=== PATIENT | female | born 1995 | race Hispanic/Latino ===

== ENCOUNTER 2017-03-16 22:21 | Emergency (ER) | payer SELFPAY ==
[~2017-03-16] VITALS: Ht 160 cm; Wt 57.6 kg
[2017-03-17 00:28] LABS: STREPTOCOCCUS GRP A ANTIGEN NEGATIVE (NEGATIVE)
[2017-03-17 00:39] LABS: INFLUENZAE A&B ANTIGEN (RAPID) NEGATIVE (NEGATIVE)
--- NOTE | 2017-03-17 00:57 | Diagnostic Imaging Report ---
CHEST 2 VIEWS, Technique: CHEST 2 VIEWS Comparison: None Clinical history: Cough DISCUSSION: Normal appearance of the heart, mediastinum, lungs and pleural spaces. Dextrocurvature of the lower thoracic spine. IMPRESSION: No acute abnormality Signed by: Dr Pura Lam MD on 03/17/2017 12:53 AM
[2017-03-17] MEDS ORDERED: AZITHROMYCIN250 MG PO (01:50)
== END 2017-03-17 01:57 | disposition home or self-care (01) ==
LOC: ER 22:21
DX: R50.9 Fever, unspecified (principal); R05 Cough; J20.9 Acute bronchitis, unspecified; J30.2 Other seasonal allergic rhinitis
CPT/HCPCS: 71046; 83518; 87070; 87400; 99283